=== PATIENT | female | born 1940 | race Caucasian/White ===

== ENCOUNTER 2025-06-19 20:10 | Emergency (ER) | payer MEDICARE, BC ==
[~2025-06-19] VITALS: Ht 157.5 cm; Wt 45.4 kg
[~2025-06-19 20:10] MED LIST: GABA400C PO; SIMV10TA2 PO
[2025-06-19 20:43] VITALS: BP 123/75; TEMP 98.2
[2025-06-19] MEDS ORDERED: HYDR-4209 PO (23:23)
[2025-06-19] MEDS ORDERED: KETO10TA2 PO (23:23)
[2025-06-19 23:50] VITALS: O2SAT 99
== END 2025-06-19 23:51 | disposition home or self-care (01) ==
LOC: ER 20:14
DX: M54.6 Pain in thoracic spine (principal); I51.9 Heart disease, unspecified; E78.00 Pure hypercholesterolemia, unspecified; J45.909 Unspecified asthma, uncomplicated; Z88.2 Allergy status to sulfonamides; Z98.890 Other specified postprocedural states; W22.03XA Walked into furniture, initial encounter; Y93.89 Activity, other specified; Y92.89 Other specified places as the place of occurrence of the external cause; Y99.8 Other external cause status
CPT/HCPCS: 71250-TC